=== PATIENT | male | born 1980 | race American Indian/Alaskan Native ===

== ENCOUNTER 2020-05-16 08:54 | Emergency (ER) | payer SELFPAY ==
[2020-05-16] MEDS ORDERED: dexAMETHasone 20 MG/5 ML VIAL IM ONE (10:08)
--- NOTE | 2020-05-16 10:40 | Emergency Department Report ---
ED General Adult HPI - General Chief complaint: Sore Throat Stated complaint: SWELLING LYMP NODES Time Seen by Provider: 05/16/20 10:03 Source: patient Mode of arrival: Ambulatory Limitations: No Limitations - History of Present Illness Initial comments: 39-year-old male presents to the emergency room complaining of worsening throat pain and swelling. Symptoms started 3 days ago he was seen at [facility] urgent care yesterday and prescribed amoxicillin he reports no improvement. C/o worsening swelling of his neck. Patient unable to open his mouth wide having difficulty swallowing. No drooling noted. He denies shortness of breath fever chills nausea vomiting no ear pain. He denies any past medical history -: days(s) (3) Location: neck (and throat) Severity scale (0 -10): 9 Quality: aching, constant Consistency: constant Improves with: none Worsens with: eating Associated Symptoms: denies: chest pain, cough, fever/chills, loss of appetite, nausea/vomiting, rash, seizure, shortness of breath, syncope, weakness Treatments Prior to Arrival: other (amoxicillin ) - Related Data Home Medications Medication Instructions Recorded Confirmed Last Taken No Known Home Medications [No 05/16/20 05/16/20 Unknown Reported Home Medications] Allergies Allergy/AdvReac Type Severity Reaction Status Date / Time No Known Allergies Allergy Unverified 05/16/20 08:56 ED Review of Systems ROS: Stated complaint: SWELLING LYMP NODES Other details as noted in HPI Constitutional: no symptoms reported. denies: chills, fever, malaise Eyes: denies: eye pain, vision change ENT: throat pain. denies: ear pain, dental pain, hearing loss, congestion Respiratory: denies: cough, orthopnea, shortness of breath, SOB with exertion, wheezing Cardiovascular: denies: chest pain, palpitations, dyspnea on exertion, edema, syncope, paroxysmal nocturnal dyspnea Endocrine: denies: flushing, intolerance to cold, intolerance to heat, unexplained weight gain Gastrointestinal: denies: abdominal pain, vomiting, diarrhea, constipation Musculoskeletal: denies: back pain Skin: denies: rash, lesions Neurological: denies: headache, weakness ED Past Medical Hx - Past Medical History Previous Medical History?: No - Surgical History Past Surgical History?: No - Social History Smoking Status: Never Smoker Substance Use Type: None - Medications Home Medications: Home Medications Medication Instructions Recorded Confirmed Last Taken Type No Known Home Medications [No 05/16/20 05/16/20 Unknown History Reported Home Medications] ED Physical Exam - General Limitations: No Limitations General appearance: alert, other (appears uncomfortable) - Head Head exam: Present: atraumatic - Eye Eye exam: Present: normal appearance. Absent: scleral icterus, conjunctival injection Pupils: Present: normal accommodation - ENT ENT exam: Present: TM's normal bilaterally, other (uable to open mouth to visualize tonsils and uvula. No drooling, tongue and lips moist) - Neck Neck exam: Present: tenderness, lymphadenopathy (anterior and left submandibular lymphadenopathy) - Respiratory Respiratory exam: Present: normal lung sounds bilaterally. Absent: respiratory distress, wheezes - Cardiovascular Cardiovascular Exam: Present: regular rate, normal heart sounds - GI/Abdominal GI/Abdominal exam: Present: soft - Extremities Exam Extremities exam: Present: normal inspection - Neurological Exam Neurological exam: Present: alert, oriented X3 - Psychiatric Psychiatric exam: Present: normal mood - Skin Skin exam: Present: warm, dry, intact, erythema (noted to anterior neck) ED Course Vital Signs 05/16/20 05/16/20 05/16/20 08:59 12:09 15:39 Temperature 99.3 F 99.4 F Pulse Rate 101 H 98 H Respiratory 18 4 L 20 Rate Blood Pressure 131/79 Blood Pressure 132/78 [Left] O2 Sat by Pulse 99 99 Oximetry - Reevaluation(s) Reevaluation #1: 05/16/20 12:03 Patient in no distress awaiting results of the CAT scan of his neck. He is complaining of no relief from the neck pain and would like to try oral medication for pain relief Reevaluation #2: 05/16/20 13:23 Soft tissue neck CAT scan resulted and is most concerning for submandibular abscess. Patient white count is 32.2. I discussed all findings with Dr. Samson he also reviewed the CT results. Clindamycin 900 mg IV. Plan to transfer patient. Patient stable no airway compromise he is able to swallow patient aware of all findings Reevaluation #3: 05/16/20 15:01 Patient is accepted by [facility]. Report given to Dr. Diaz, ENT and Dr. Burkett in the emergency room at [facility] patient is aware that he has been transferred to [facility] and agrees. 05/16/20 16:41 Reevaluation #4: 05/16/20 16:41 Transport team present patient transferred to [facility] ED Medical Decision Making - Lab Data Result diagrams: 05/16/20 10:14 05/16/20 10:14 - Radiology Data Radiology results: report reviewed CT NECK w/contrast IMPRESSION: 1. The findings are most concerning for 3.2 x 3.3 cm abscess involving the left submandibular gland with notable surrounding inflammatory changes as detailed above. The edema extends anteriorly and medially with displacement of the left pharyngeal soft tissues as well as effacement of the left vallecula and pyriform sinus. - Medical Decision Making 39-year-old male with throat and neck pain found to have a submandibular abscess on confirmed with CT of the neck. His white count is significantly elevated at 32.2 otherwise unremarkable labs. Patient with no signs of airway compromise. In the emergency he was given clindamycin 900 mg IV piggyback and Decadron 10 mg . He remained stable and in no acute distress Critical Care Time: No Critical care attestation.: If time is entered above; I have spent that time in minutes in the direct care of this critically ill patient, excluding procedure time. ED Disposition Clinical Impression: Submandibular abscess Disposition: [id number] ANOTHER TYPE HLTHCARE Is pt being admited?: No Does the pt Need Aspirin: No Condition: Stable Instructions: Abscess (ED) Additional Instructions: Transfer to [facility] Accepted by Dr. Burkett in the ER and Dr. Diaz ENT Referrals: PRIMARY CARE, [Primary Care Provider] - 3-5 Days Time of Disposition: 16:43
[2020-05-16 10:42] LABS: Hematocrit 41.7 % (35.5-45.6); Hemoglobin 13.5 gm/dl (11.8-15.2); Mean Corpuscular HGB Conc 32 % (32-34); Mean Corpuscular Volume 84 fl (84-94); Platelet Count 584 K/mm3 (140-440); Red Blood Count 4.95 M/mm3 (3.65-5.03); Red Cell Distribution Width 14.4 % (13.2-15.2)
[2020-05-16 11:06] LABS: BUN/Creatinine Ratio 13; Blood Urea Nitrogen 13 mg/dL (9-20); Hemolysis Index 2
[2020-05-16] MEDS ORDERED: oxyCODONE 5 MG TAB PO ONE (12:04)
--- NOTE | 2020-05-16 13:07 | Cat Scan Report ---
CT neck w con INDICATION / CLINICAL INFORMATION: 39 years Male; MAIN. TECHNIQUE: Contiguous thin cut axial images obtained through the neck following IV contrast. Sagittal and sandhu l reconstructions performed by the technologist. All CT scans at this location are performed using CT dose reduction for ALARA by means of automated exposure control. COMPARISON: None available. FINDINGS: There is a fluid collection projected along the anterior left submandibular gland measuring 3.2 cm transverse by 3.3 cm AP in greatest dimensions. There are associated prominent a surrounding inflammatory changes including notable a thickening of the left platysma muscle and this finding woul d be most concerning for abscess. The findings extend to the left buccal and submental soft tissues. A focus of air is seen along the left lateral margin of the fluid collection measuring possibly a 6 m m concerning for gas-forming organism. There is also notable increased enhancement of the more electric meter setter ior left parotid gland the edematous changes extend anteriorly along the left floor of mouth. Further more, there is also medial extent with mass effect upon the left pharyngeal soft tissues as well as i nferiorly with effacement of the left vallecula and piriform sinus at. There is mild narrowing of the airway at the supraglottic level. No radiopaque calculi are seen along the visualized lower mouth. MUCOSAL SPACE: The edematous changes appear to result a mild thickening of the epiglottis. There is n o significant displacement of the visualized upper esophagus. LYMPH NODES: There are associated reactive lymph nodes within the left submandibular and jugulodigast pérez regions with the largest measuring approximately 0.8 cm in short axis diameter. Smaller nodes are seen on the right. SALIVARY GLANDS: As above regarding the left submandibular gland. The parotid glands demonstrate appr opriate attenuation without calcification. The right submandibular gland also appears unremarkable. THYROID GLAND: Unremarkable. PARANASAL SINUSES: Visualized paranasal sinuses and mastoid air cells are essentially clear. SPINE: No significant abnormality of the cervical spine appreciated. VASCULAR STRUCTURES: Vascular structures are grossly normal in appearance. Surrounding soft tissues are otherwise grossly normal. IMPRESSION: 1. The findings are most concerning for 3.2 x 3.3 cm abscess involving the left submandibular gland w ith notable surrounding inflammatory changes as detailed above. The edema extends anteriorly and medi ally with displacement of the left pharyngeal soft tissues as well as effacement of the left vallecul a and pyriform sinus. I was not notified of this stat exam which was not noticed when called regarding another stat study r esulting in some delay in the dictation. Signer Name: Kenneth Choudhury MD Signed: 05/16/2020 1:03 PM Workstation Name: [id number]
[2020-05-16] MEDS ORDERED: SODIUM CHLORIDE 0.9% 1000 ML 1,000 ML IV ONE (13:31)
[2020-05-16 13:54] LABS: Basophils % (Manual) 0 % (0.0-1.8); Eosinophils % (Manual) 0 % (0.0-4.3); RBC Morphology Normal; Total Cells Counted 100
[2020-05-16 13:55] LABS: Platelet Estimate Consistent w Auto
[2020-05-16 15:40] VITALS: BP 132/78
== END 2020-05-16 16:44 | disposition other institution (70) ==
LOC: ED 08:54
DX: K12.2 Cellulitis and abscess of mouth (principal)
CPT/HCPCS: 36415; 70491; 80048; 85007; 85025; 96361; 96365; 96372; 99285; J1100; J7030; Q9967